=== PATIENT | male | born 1945 | race African-American/Black ===

== ENCOUNTER 2017-05-30 00:58 | Observation (INO) | payer OTHER ==
[2017-05-30 02:39] LABS: CRP (Inflammatory) 2.13 mg/dL (= or < 0.5); Uric Acid 11.3 mg/dL (3.5-7.2)
[2017-05-30] MEDS ORDERED: Acetaminophen 325 MG TAB PO PRN (04:25)
[2017-05-30] MEDS ORDERED: Dextrose 50% Abboject 50 ML SYRINGE SLOW IVP PRN (04:25)
[2017-05-30] MEDS ORDERED: hydrALAZINE 20 MG/ML VIAL SLOW IVP PRN (04:25)
[2017-05-30] MEDS ORDERED: Fentanyl 100 MCG/2 ML VIAL SLOW IVP PRN (04:25)
[2017-05-30] MEDS ORDERED: Colchicine 0.6 MG TAB PO SCH ×2 (04:25→09:30)
[2017-05-30] MEDS ORDERED: HumaLOG 300 UNITS/3 ML VIAL SC PRN (04:25)
[2017-05-30] MEDS ORDERED: Dextrose 5% in Water 1,000 ML IV PRN (04:25)
[2017-05-30] MEDS ORDERED: Ondansetron ODT 4 MG TAB PO PRN (04:25)
[2017-05-30] MEDS ORDERED: Labetalol HCl 100 MG/20 ML VIAL SLOW IVP PRN (04:25)
[2017-05-30 04:48] VITALS: BMI 29.9
[2017-05-30] MEDS ORDERED: cefTRIAXone\\ROCEPHIN 2 GM in Sodium Chloride 0.9% 100 ML IVPB SCH ×2 (05:00→20:00)
--- NOTE | 2017-05-30 05:02 | HP-2 ---
CODE STATUS: FULL. PRIMARY CARE PHYSICIAN: Sammy jc. ATTENDING: Dr. Umanzor. RESIDENTS: Tomi Ng MD CHIEF COMPLAINT: Painful left knee. HISTORY OF PRESENT ILLNESS: A 71-year-old male presents with a 4-day history of progressive left kne e pain and swelling. This is a patient from a [facility] transfer. Patient states that two nights ago, the pain got a lot more severe and he could not sleep because of it. Acutely, today the pain got kenrick n worse and his daughter brought him in to be evaluated. The patient states that he is not able to e xtend his leg fully and he cannot bear weight on it either. He also states that he has not had any n ausea, vomiting, diarrhea, fevers or chills during this time. He describes the pain as being sharp a nd it is worst on the lateral aspect of the knee. This has never happened to him before. He has no other complaints at this time. In the ER, he was given vancomycin 1 gram and morphine 6 mg x2. PAST MEDICAL HISTORY: Diabetes mellitus type 2, GERD, hyperlipidemia, hypertension, and cirrhosis. PAST SURGICAL HISTORY: He had a back surgery and a colostomy with a colostomy reversal back in the . ALLERGIES: LISINOPRIL. MEDICATIONS: 1. Cetirizine 10 mg p.o. daily. 2. Furosemide 80 mg p.o. b.i.d. 3. Doxepin 25 mg at bedtime. 4. Ranitidine 300 mg b.i.d. 5. Docusate 100 mg b.i.d. 6. Fexofenadine 60 mg daily. 7. Calcium carbonate with vitamin D3, so 600 mg per 400 units. 8. Omeprazole 20 mg p.o. daily. 9. Losartan 100 mg p.o. daily. 10. Atorvastatin 20 mg daily. 11. Humulin N 40 units subcu b.i.d. FAMILY HISTORY: Noncontributory. SOCIAL HISTORY: The patient does have a [id number] smoking history, currently smokes about half a pack per day. Denies any alcohol or drug use. REVIEW OF SYSTEMS: General: Denies fevers, chills, weight changes. Eyes: Denies vision changes or eye pain. ENT: Denies nasal congestion, rhinorrhea, sore throat. Respiratory: Denies cough, enio estion. He admits to longstanding shortness of breath that is no worse than his normal. Cardiovascu lar: Denies chest pain or palpitations. Gastrointestinal: Denies nausea, vomiting, diarrhea or con stipation. Genitourinary: Denies incontinence, dysuria. Skin: Denies rashes, lesions, jaundice, o r itching. Musculoskeletal: He does admit to pain, tenderness, stiffness, swelling, and arthritis t o his left knee. Neurologic: Denies any weakness, numbness, syncope or seizures. Psychiatric: Den ies anxiety or depression. PHYSICAL EXAMINATION: VITAL SIGNS: Blood pressure was 184/71, pulse 68, respirations 15, temperature max 99.4, pulse ox 96 % on room air, current weight is 103 kilos. GENERAL: He is alert and oriented x4, appropriate, interactive, but he does appear to be in pain. HEENT: PERRLA. Conjunctivae within normal limits. ENT: Tympanic membranes are pearly patel without bulging or erythema. Nasal mucosa and oropharynx wi thin normal limits. NECK: Supple. No lymphadenopathy, no thyromegaly. CARDIOVASCULAR: Regular rate and rhythm. No murmurs. Radial and pedal pulses equal bilaterally. RESPIRATORY: Normal effort, no retraction. Clear lungs to auscultation bilaterally. SKIN: Warm and dry. He does have erythema overlying his patella on his left knee. ABDOMEN: Soft, nontender to palpation. Bowel sounds are present x4. No mass or distention. EXTREMITIES: No clubbing, cyanosis. He does have inflamed, swollen, erythematous, and hot left knee . MUSCULOSKELETAL: Structure, tone within normal limits. His range of motion was definitely decreased on his left knee. Strength testing was not performed in his lower extremities. NEUROLOGIC: No focal neurologic deficits. Sensation within normal limits. Cranial nerves II throug h XII grossly intact. GCS was 15. PSYCHIATRIC: Appropriate. LABORATORY DATA: Lab values were found at an outside facility, white blood cell count was 6.4, plate let count 92, hemoglobin 8.4, hematocrit 26.1, neutrophils 65.1%. Sodium 140, potassium 3.7, chlorid e 109, bicarb 21, BUN 16, creatinine 1.83, glucose 187, calcium 8.5, total protein 8.0, albumin 3.0, total bilirubin 0.8, AST was 39, ALT 24, alkaline phosphatase 246. The remaining labs were found in the inside facility. ESR was 101. CRP was 213, uric acid 11.3. Synovial fluid tap that occurred at the outside facility showed hazy fluid clarity 40 white blood cells, 60 red blood cells, and no neut rophils reported 87% lymphocytes. There are crystal ID and path pending at this time. Knee x-ray sh owed minimal degenerative changes noted. Small joint effusion cannot be excluded. ASSESSMENT AND PLAN: A 71-year-old male; 1. Inflammatory arthritis. We will rule out a septic joint. We will start him on vancomycin and Ro cephin for empiric treatment. We will consider further imaging as needed. Also, give him a dose of indomethacin and colchicine to see if that improves his symptoms from a gout perspective. Also, we w ill give him fentanyl and Redbird for pain control. 2. Chronic kidney disease, 3. He is at his baseline creatinine. We will monitor and give him IV fl uids. 3. Anemia, unknown etiology. Recommend outpatient follow up for this as this is not his acute probl em. 4. Hyperglycemia and diabetes mellitus type 2. Insulin, Accu-Cheks, and sliding scale insulin. 5. Thrombocytopenia. There are no signs or symptoms of bleeding. We will trend this and will recom mend outpatient follow up. At this time, we will be holding Lovenox dose until a repeat platelet cou nt is known with labs. 6. Elevated alkaline phosphatase, likely secondary to #1, but GGT is pending at this time to determi ne the etiology of his elevated lab value. 7. Elevated ESR, likely secondary to #1 with the same plan as above. 8. Elevated CRP, likely secondary to #1, same plan as above. 9. Elevated uric acid. We are ruling out septic joint, but gout is on a differential and he will be receiving empiric treatment with colchicine and indomethacin for gout. 10. Hypertension. Will continue home meds, given as needed. 11. Gastroesophageal reflux disease. We will continue his home medications 12. Hyperlipidemia. We will continue his statin at this time. DISPOSITION AND LENGTH OF HOSPITAL STAY: Will be medical and 1. Symptomatic medication will be provided. History and physical exam as well as management has been discussed with Dr. Umanzor.
[2017-05-30] MEDS: Sodium Chloride 0.9% 1,000 ML IV SCH ×2 (05:05→12:23)
[2017-05-30] MEDS: HYDROcodone/Acetaminophen 10/325 mg Tablet PO PRN ×2 (05:49→08:57)
--- NOTE | 2017-05-30 08:26 | RAD ---
CHEST ONE VIEW: History: Chest pain. Cellulitis of the knee. Comparison: 03-12-17 FINDINGS: Heart size upper limits of normal. No focal airspace consolidation, pneumothorax, or effusion. No acu te osseous abnormalities. IMPRESSION: Mild cardiomegaly, otherwise unremarkable exam. POS: OFF
[2017-05-30] MEDS ORDERED: Indomethacin 25 mg Capsule PO SCH (09:00)
[2017-05-30] MEDS: Losartan 25 MG TAB PO SCH (09:01)
[2017-05-30] MEDS: Furosemide 80 MG TAB PO SCH ×2 (09:01→15:04)
[2017-05-30] MEDS: Famotidine 20 MG TAB PO SCH ×2 (09:01→20:21)
[2017-05-30] MEDS: NPH, Human Insulin Isophane 300 UNIT/3 ML VIAL SC SCH ×2 (09:03→21:01)
[2017-05-30] MEDS: Vancomycin HCl 1.5 GM in Sodium Chloride 0.9% 250 ML 300 ML IVPB SCH (15:05)
[2017-05-30] MEDS ORDERED: Atorvastatin Calcium 20 MG TAB PO SCH (21:00)
[2017-05-31] MEDS: Vancomycin HCl 1.5 GM in Sodium Chloride 0.9% 250 ML 300 ML IVPB SCH (03:07)
[2017-05-31 05:25] LABS: Anion Gap 12 mmol/L (10-20); BUN (Urea Nitrogen) 21 mg/dL (8.4-25.7); Calc. Creatinine Clearance 58 mL/min (70-130); Calcium 8.3 mg/dL (7.8-10.44); Carbon Dioxide 22 mmol/L (23-31); Chloride 111 mmol/L (98-107); Estimated GFR-MDRD 48; Glucose 97 mg/dL (80-115); Potassium 3.8 mmol/L (3.5-5.1); Sodium 141 mmol/L (136-145)
[2017-05-31 05:36] LABS: Band 2 % (5-11); Eosinophils 2 % (0-10); Hemoglobin 9.1 g/dL (14.0-18.0); Lymphocytes 28 % (21-51); MDiff Complete? YES; Mean Corpuscular HGB CONC 31.8 g/dL (32.0-36.0); Mean Corpuscular Hemoglobin 31.1 pg (27.0-31.0); Mean Corpuscular Volume 97.8 fl (80.0-94.0); Monocytes 18 % (0-10); Neutrophil 50 % (42-75); PLT Morphology Comment Appears Decreased; Platelet Count 92 thou/uL (130-400); RBC Distribution Width 17.3 % (11.5-14.5); Red Blood Cell (RBC) Count 2.93 mill/uL (4.70-6.10)
[2017-05-31] MEDS: Sodium Chloride 0.9% 1,000 ML IV SCH ×2 (06:37)
--- NOTE | 2017-05-31 06:48 | PDOC.FM ---
- Subjective Subjective: Patient doing well this AM. No significant overnight events. Pain has improved since yesterday. He only used hydrocodone twice yesterday. He has been up walking around without too much difficulty. He is able to fully extend his knee today. - Objective MAR Reviewed: Yes Vital Signs & Weight: Vital Signs (12 hours) Temp Pulse Resp BP BP Pulse Ox 05/31/17 04:00 98.2 F 73 18 157/61 H 96 05/31/17 00:00 98 F 60 18 154/58 H 98 05/30/17 21:40 98.2 F 60 18 153/64 H 98 05/30/17 20:21 97.9 F 66 18 05/30/17 19:29 97.9 F 66 18 165/62 H 99 Weight Admit Weight 100.153 kg Weight 100.153 kg I&O: 05/29/17 05/30/17 05/31/17 06:59 06:59 06:59 Intake Total 173.5 1723 Output Total 200 Balance 173.5 1523 Result Diagrams: 05/31/17 04:45 05/31/17 04:45 EKG Reviewed by me: Yes Radiology Reviewed by me: Yes <Marion Kent - Last Filed: 05/31/17 08:49> - Objective Vital Signs & Weight: Vital Signs (12 hours) Temp Pulse Resp BP BP Pulse Ox 05/31/17 08:28 61 180/73 H 05/31/17 08:00 98.3 F 61 16 180/73 H 98 05/31/17 04:00 98.2 F 73 18 157/61 H 96 05/31/17 00:00 98 F 60 18 154/58 H 98 Weight Admit Weight 100.153 kg Weight 100.153 kg I&O: 05/30/17 05/31/17 06/01/17 06:59 06:59 06:59 Intake Total 173.5 1723 Output Total 200 Balance 173.5 1523 Result Diagrams: 05/31/17 04:45 05/31/17 04:45 <Narciso Umanzor - Last Filed: 05/31/17 09:48> Phys Exam - Physical Examination Constitutional: NAD HEENT: moist MMs Neck: supple Respiratory: clear to auscultation bilateral Cardiovascular: RRR Gastrointestinal: soft, positive bowel sounds Musculoskeletal: no edema, pulses present Able to fully extend left knee Neurological: non-focal Psychiatric: A&O x 3 Deviation from normal: Erythematous left knee. Only mildly tender to palpation on lateral aspect. <Marion Kent - Last Filed: 05/31/17 08:49> Dx/Plan (1) Inflammatory arthritis Code(s): M19.90 - UNSPECIFIED OSTEOARTHRITIS, UNSPECIFIED SITE Status: Acute (2) Diabetes mellitus, type II Status: Chronic (3) HTN (hypertension) Code(s): I10 - ESSENTIAL (PRIMARY) HYPERTENSION Status: Chronic (4) GERD (gastroesophageal reflux disease) Code(s): K21.9 - GASTRO-ESOPHAGEAL REFLUX DISEASE WITHOUT ESOPHAGITIS Status: Chronic (5) HLD (hyperlipidemia) Code(s): E78.5 - HYPERLIPIDEMIA, UNSPECIFIED Status: Chronic (6) CKD (chronic kidney disease) stage 3, GFR 30-59 ml/min Code(s): N18.3 - CHRONIC KIDNEY DISEASE, STAGE 3 (MODERATE) Status: Chronic - Plan Plan: 1. Inflammatory monoarthritis of left knee vs. Cellulitis - Does not appear septic in nature - De-escalate antibiotics to bactrim for possible overlying cellulitis - No crystals detected on arthrocentesis - s/p treatment with colchicine, indomethacin and steroids - Will continue prednisone as patient has GFR 45-48; improved with steroids - PT eval/treat 2. Diabetes mellitus type, II - SSI - BG this AM 97 - Continue home medications 3. HTN - BP this AM 157/61 - Continue home medications - Added amlodipine instead of HCTZ, as there is concern this might be gout 4. GERD - Continue home medications 5. HLD - Continue home medications 6. CDK III - Avoid nephrotoxic drugs - Stable Dispo: Stable. D/c home today on bactrim and steroids after evaluated by PT. <Marion Kent - Last Filed: 05/31/17 08:49> Attending Addendum - Attending Addendum I personally evaluated the patient and discussed the management with Dr. Kent. I agree with the History, Examination, Assessment and Plan documented above with any addition or exceptions noted below. Knee pain, redness, swelling much improved, plan to d/c. Fluid analysis did not show evidence of infection or crystals. Will presume a gouty attack with elevated uric acid and improvement clinically with steroids. Will also d/c with a course of bactrim for a possible overlying cellulitis. <Narciso Umanzor - Last Filed: 05/31/17 09:48>
[2017-05-31] MEDS ORDERED: predniSONE 50 MG TAB PO SCH (08:00)
[2017-05-31] MEDS: Famotidine 20 MG TAB PO SCH (08:27)
[2017-05-31] MEDS: Losartan 25 MG TAB PO SCH (08:27)
[2017-05-31] MEDS: Furosemide 80 MG TAB PO SCH (08:28)
[2017-05-31] MEDS: NPH, Human Insulin Isophane 300 UNIT/3 ML VIAL SC SCH (08:29)
[2017-05-31] MEDS ORDERED: Acetaminophen/Codeine 30-300mg Tablet PO PRN (08:45)
[2017-05-31] MEDS ORDERED: Amlodipine 5 MG TAB PO SCH (09:00)
[2017-05-31] MEDS ORDERED: Sulfameth/Trimethoprim DS 800-160mg TAB PO SCH (09:00)
[2017-05-31 12:18] VITALS: BP 152/66; TEMP 98.5
[2017-05-31] MEDS ORDERED: Carvedilol 6.25 MG TAB PO SCH (21:00)
[2017-05-31] MEDS ORDERED: Non-Formulary Item 1 EACH (Carvedilol [Coreg] 6.25 MG) PO SCH (21:00)
[2017-05-31] MEDS ORDERED: Furosemide 40 MG TAB PO SCH (21:00)
[2017-05-31] MEDS ORDERED: Non-Formulary Item 1 EACH (Omeprazole [Omeprazole] 20 MG) PO SCH (21:00)
[2017-05-31] MEDS ORDERED: Insulin NPH/Reg Insulin Hm 300 UNITS/3 ML VIAL SC SCH ×2 (21:00)
[2017-05-31] MEDS ORDERED: Doxepin HCl 25 MG CAP PO SCH (21:00)
[2017-06-01] MEDS ORDERED: Cetirizine HCl 10 MG TAB PO SCH (09:00)
[2017-06-01] MEDS ORDERED: Loratadine 10 MG TAB PO SCH (09:00)
[2017-06-01] MEDS ORDERED: Calcium Carbonate + Vit D 250 MG TAB PO SCH (09:00)
[2017-06-01] MEDS ORDERED: Docusate 100 MG CAP PO SCH (09:00)
--- NOTE | 2017-06-01 12:45 | DIS-2 ---
DATE OF ADMISSION: 05/30/2017 DATE OF DISCHARGE: 05/31/2018 ADMITTING ATTENDING: Dr. Salbador Ziegler DISCHARGE ATTENDING: Dr. Narciso Umanzor RESIDENT: Dr. Marion Kent PROCEDURES: 1. Chest x-ray mild cardiomegaly. 2. Arthrocentesis which did not show any growth in 5 days and there are only few white blood cells s een with no organism. CONSULTATIONS: None. PRIMARY DIAGNOSES: 1. Inflammatory monoarthritis of the left knee. 2. Possible cellulitis of the left knee. SECONDARY DIAGNOSES: 1. Diabetes mellitus type 2. 2. Hypertension. 3. Gastroesophageal reflux disease. 4. Hyperlipidemia. 5. Chronic kidney disease stage 3. DISCHARGE MEDICATIONS: 1. Tylenol #3 one tablet oral q.6h. as needed. 2. Amlodipine 5 mg oral daily. 3. Atorvastatin calcium 20 mg oral at bedtime. 4. Losartan 100 mg oral daily. 5. NPH, human insulin isophane 40 units subcutaneous twice daily. 6. Prednisone 50 mg oral every morning with breakfast for an additional 3 days. 7. Bactrim-DS 1 tablet oral twice daily for an additional 8 and a half days. 8. Cetirizine 5 mg oral daily. 9. Calcium carbonate/vitamin D3 one tablet oral daily. 10. Docusate 100 mg oral daily. 11. Doxepin HCL 25 mg oral at bedtime. 12. Omeprazole 20 mg oral twice daily. 13. Furosemide 20 mg oral daily. 14. Carvedilol 6.25 mg p.o. b.i.d. HISTORY OF PRESENT ILLNESS/HOSPITAL COURSE: This is a 71-year-old male that presented with a 4 day h istory of progressive left knee pain and swelling. He was transferred over from [place] where he had an arthrocentesis performed. The patient states that 2 nights ago the pain got a lot more severe and he could not sleep because of it. On the day of admission, the pain got even worse and the daughter brought him in to be evaluated. The patient stated that he was not able to extend his leg fully and cannot bear weight on it. He also stated that during this time he has not had any nausea, vomiting, diarrhea, fevers or chills. The patient describes the pain as sharp and it is worse in the lateral aspect of the knee. This has never happened to him previously. He has no other complaints at this t vincent. He denies any history of gout. In the emergency department, he was given vancomycin 1 gram and morphine 6 mg x2. The patient remained stable throughout the course of his hospital stay. The patient was started on v ancomycin and Rocephin for empiric treatment of septic arthritis pending blood cultures. Additionall y, he was given a dose of indomethacin and colchicine for a possible gouty attack. Due to patient's chronic kidney disease indomethacin was not continued and the patient was instead transitioned over t o prednisone after receiving his max dose of colchicine. Laboratory findings did show a uric acid le niya elevated at 11.3, which may be consistent with gout; however, arthrocentesis did not grow out any crystals. There are also no organisms noted in the fluid. Report did state that there was not a lo t of fluid to be evaluated through the arthrocentesis and this may not represent patient's current pa thology. The patient's pain did improve during the course of his hospital stay. He was able to exte nd his knee fully on the day after admission, and he was up walking around with minimal to no assista nce. Walking program did discharge him from their services due to how well he was doing. Since it i s uncertain whether or not this is truly due to a gouty attack, the prednisone was continued for a to alma of 5 days. Additionally, the patient was transitioned over to oral antibiotics for a possible ce llulitis of the knee. He was transitioned to Bactrim-DS to complete a total of 10 day course. [facility] to follow closely with his primary care physician to ensure resolution of his symp toms. Initially, his blood pressure remained elevated during the course of his hospital stay, so he was started on a low dose of amlodipine in an attempt to lower the blood pressure. The patient deann nued to be treated for his diabetes with his home regimen. Additionally, the patient was noted to hardy ve a normocytic anemia which is chronic and stable with a hemoglobin of 8.4 on day of admission and 9 .1 on day of discharge. This is likely secondary to his chronic kidney disease. DISPOSITION: Stable. DISCHARGE INSTRUCTIONS: 1. Location: Home. 2. Activity: Orthopedic limitations secondary to left knee pain. 3. Diet: Diabetic diet, heart healthy diet. 4. Followup: The patient is to follow up with the OR Clinic in [place] within 7 days of dis charge from the hospital to ensure resolution/improvement in symptoms. This was explained to the pat milton and he was understanding of the plan and agreeable.
== END 2017-05-31 14:40 | disposition home or self-care (01) ==
LOC: ERS 00:58 → T4-A 02:35
PROVIDERS: ADMIT Family Medicine; ATTEND Family Medicine
DX: M13.162 Monoarthritis, not elsewhere classified, left knee (principal); E11.22 Type 2 diabetes mellitus with diabetic chronic kidney disease; I12.9 Hypertensive chronic kidney disease with stage 1 through stage 4 chronic kidney disease, or unspecified chronic kidney disease; N18.3 Chronic kidney disease, stage 3 (moderate); K21.9 Gastro-esophageal reflux disease without esophagitis; E78.5 Hyperlipidemia, unspecified; K74.60 Unspecified cirrhosis of liver; F17.210 Nicotine dependence, cigarettes, uncomplicated; D63.1 Anemia in chronic kidney disease; E11.65 Type 2 diabetes mellitus with hyperglycemia; D69.6 Thrombocytopenia, unspecified; R74.8 Abnormal levels of other serum enzymes; Z79.4 Long term (current) use of insulin; Z79.899 Other long term (current) drug therapy; Z88.8 Allergy status to other drugs, medicaments and biological substances; Z98.890 Other specified postprocedural states
CPT/HCPCS: 36415; 36416; 71045; 80048; 82977; 84550; 85025; 85652; 86140; 93005; 96361; 96365; 96366; 96367; 96374; 96375; 96376; A4216; G0378; G8978-GP-CI; G8979-GP-CI; G8980-GP-CI; J0360; J0696; J1815; J3370; J7050